=== PATIENT | female | born 1980 | race Caucasian/White ===

== ENCOUNTER 2017-02-01 21:47 | Emergency (ER) | payer OTHER ==
[2017-02-01 21:56] VITALS: PULSE 83; TEMP 97.5; BMI 30.9
--- NOTE | 2017-02-01 22:03 | PDOC ---
Attending Attestation - Resident Resident Name: ThomamanjanyJona - HPI HPI: 02/02/17 05:12 not taking BP meds; now BP elevated; pt doesn't know what meds she was on. - Physicial Exam PE: 02/02/17 05:12 agree with resident exam - Medical Decision Making 02/02/17 05:12 HCTZ will be given follow with PMD; avoid salt.
--- NOTE | 2017-02-01 22:03 | PDOC ---
History of Present Illness - General Chief Complaint: Blood Pressure Problem Stated Complaint: BLOOD PRESSURE Time Seen by Provider: 02/01/17 21:59 - History of Present Illness Initial Comments: 02/01/17 22:02 The patient is a 36 year old female with a significant past medical history of HTN who presents to the emergency department with a bp reading at home of 210/ 100. She reports that she has been feeling weak and dizzy recently and ran out of her BP medication 2 weeks ago. The patient denies chest pain, shortness of breath, and headache. Denies fever, chills, nausea, vomit, diarrhea and constipation. Denies dysuria, frequency, urgency and hematuria. Allergies: Denies Past surgical history: 1 Social history: Denies PMD - Bharti Osorio Past History - Past Medical History Allergies/Adverse Reactions: Allergies Allergy/AdvReac Type Severity Reaction Status Date / Time No Known Allergies Allergy Verified 02/01/17 21:53 Home Medications: Ambulatory Orders Hydrochlorothiazide [Hctz -] 25 mg PO DAILY #30 tablet 02/01/17 HTN: Yes - Immunization History Immunization Up to Date: Yes - Psycho/Social/Smoking Cessation Hx Anxiety: No Suicidal Ideation: No Smoking History: Never smoked Have you smoked in the past 12 months: No Hx Alcohol Use: No Drug/Substance Use Hx: No Substance Use Type: None Review of Systems - Review of Systems Comments:: 02/01/17 22:02 GENERAL/CONSTITUTIONAL: No fever or chills. No weakness. HEAD, EYES, EARS, NOSE AND THROAT: No change in vision. No ear pain or discharge. No sore throat. CARDIOVASCULAR: No chest pain or shortness of breath RESPIRATORY: No cough, wheezing, or hemoptysis. GASTROINTESTINAL: No nausea, vomiting, diarrhea or constipation. GENITOURINARY: No dysuria, frequency, or change in urination. MUSCULOSKELETAL: No joint or muscle swelling or pain. No neck or back pain. SKIN: No rash NEUROLOGIC: No headache, vertigo, loss of consciousness, or change in strength/ sensation. ENDOCRINE: No increased thirst. No abnormal weight change HEMATOLOGIC/LYMPHATIC: No anemia, easy bleeding, or history of blood clots. ALLERGIC/IMMUNOLOGIC: No hives or skin allergy. *Physical Exam - Vital Signs Last Vital Signs Temp Pulse Resp BP Pulse Ox 97.5 F L 83 18 210/100 100 02/01/17 21:54 02/01/17 21:54 02/01/17 21:54 02/01/17 21:54 02/01/17 21:54 - Physical Exam Comments: 02/01/17 22:02 GENERAL: Awake, alert, and fully oriented, in no acute distress HEAD: No signs of trauma, normocephalic, atraumatic EYES: PERRLA, EOMI, sclera anicteric, conjunctiva clear ENT: Auricles normal inspection, hearing grossly normal, nares patent, oropharynx clear without exudates. Moist mucosa NECK: Normal ROM, supple, no lymphadenopathy, JVD, or masses LUNGS: No distress, speaks full sentences, clear to auscultation bilaterally HEART: Regular rate and rhythm, normal S1 and S2, no murmurs, rubs or gallops, peripheral pulses normal and equal bilaterally. ABDOMEN: Soft, nontender, normoactive bowel sounds. No guarding, no rebound. No masses EXTREMITIES: Normal inspection, Normal range of motion, no edema. No clubbing or cyanosis. NEUROLOGICAL: Cranial nerves II through XII grossly intact. Normal speech, normal gait, no focal sensorimotor deficits SKIN: Warm, Dry, normal turgor, no rashes or lesions noted. Medical Decision Making - Medical Decision Making 02/01/17 23:49 Patient BP lowered with 50 of Lasix. D/Cing to home with instructions to f/u with PCP. *DC/Admit/Observation/Transfer Diagnosis at time of Disposition: Hypertension Qualifiers: Hypertension type: unspecified Qualified Code(s): I10 - Essential (primary) hypertension - Discharge Dispostion Disposition: HOME - Prescriptions Prescriptions: Hydrochlorothiazide [Hctz -] 25 mg PO DAILY #30 tablet - Patient Instructions Printed Discharge Instructions: DI for High Blood Pressure
[2017-02-01] MEDS ORDERED: HYDROCHLOROTHIAZIDE 50 MG TABLET PO ONE (22:28)
[2017-02-01] MEDS ORDERED: HYDROCHLOROTHIAZIDE 25 MG TABLET (FP) ONE ×2 (22:35→22:42)
[2017-02-01 23:58] VITALS: BP 158/107
== END 2017-02-01 23:54 | disposition home or self-care (01) ==
LOC: JER 21:47
DX: I10 Essential (primary) hypertension (principal)
CPT/HCPCS: 99282-25

== ENCOUNTER 2020-03-17 19:17 | Emergency (ER) | payer OTHER ==
[2020-03-17 19:27] VITALS: BMI 32.5
--- OUTSIDE RECORDS SUMMARY | 2020-03-17 19:40 | XMS ---
:1980 Author Organization [facility] Support Name Relationship Address Phone UE Unavailable Unavailable Unavailable SASKIA BUNCH [address] [facility] [place] [address] Re-disclosure Warning The records that you are about to access may contain information from federally- assisted alcohol or drug abuse programs. If such information is present, then the following federally mandated warning applies: This information has been disclosed to you from records protected by federal confidentiality rules (42 CFR part 2). The federal rules prohibit you from making any further disclosure of this information unless further disclosure is expressly permitted by the written consent of the person to whom it pertains or as otherwise permitted by 42 CFR part 2. A general authorization for the release of medical or other information is NOT sufficient for this purpose. The Federal rules restrict any use of the information to criminally investigate or prosecute any alcohol or drug abuse patient.The records that you are about to access may contain highly sensitive health information, the redisclosure of which is protected by Article 27-F of the [facility] Public Health law. If you continue you may haveaccess to information: Regarding HIV / AIDS; Provided by facilities licensed or operated by the [facility] Office of Mental Health; or Provided by the [facility] Office for People With Developmental Disabilities. If such information is present, then the following [facility] mandated warning applies: This information has been disclosed to you from confidential records which are protected by state law. State law prohibits you from making any further disclosure of this information without the specific written consent of the person to whom it pertains, or as otherwise permitted by law. Any unauthorized further disclosure in violation of state law may result in a fine or intermediate sentence or both. A general authorization for the release of medical or other information is NOT sufficient authorization for further disclosure. Insurance Providers Payer name Policy type Policy ID Covered Covered alliance party's Policy P abimbola / Coverage alliance party ID relationship to [employer] type [place] [place] [id number] HEALTH NON CAP
[2020-03-17] MEDS ORDERED: LABETALOL HCL 5 MG/1 ML (100MG/20 ML VIAL) IVPUSH ONE (19:56)
--- NOTE | 2020-03-17 20:06 | PDOC ---
History of Present Illness - General Chief Complaint: Chest Pain Stated Complaint: CHEST PAIN, SENT BY [facility] Time Seen by Provider: 03/17/20 19:46 - History of Present Illness Initial Comments: HPI: 03/17/20 19:57 39 yo F PMH HTN, HLD, presenting with chest pain. Citizen Of [place] speaking only, here with her . Reports that over the past 2 weeks, she has been having constant 8/10 L sided chest pain, feels like tightness, with occasional radiation down her left arm, associated with SOB and SANCHEZ. Has only been taking her labetalol 200mg BID once a day or not at all because "it is too much". Denies smoking, drinks 5 beers three times a week, denies other drug use. Mom and dad both have high blood pressure. Denies N/V and diaphoresis. ROS: GENERAL/CONSTITUTIONAL: denies fever, chills, diaphoresis, generalized weakness HEAD, EYES, EARS, NOSE AND THROAT: denies rhinorrhea, nasal congestion NEUROLOGIC: denies headache, dizziness, mental status changes CARDIOVASCULAR: endorses chest pain. Denies syncope, palpitations, irregular heart rate, lightheadedness, peripheral edema RESPIRATORY: endorses shortness of breath and dyspnea with exertion. Denies cough, orthopnea, wheezing GASTROINTESTINAL: denies abdominal pain, abdominal distension, nausea, vomiting, diarrhea, constipation GENITOURINARY: denies dysuria, frequency, urgency MUSCULOSKELETAL: denies myalgia, arthralgia, joint swelling, back pain, neck pain SKIN: denies rash, itching PE: Gen: well-developed, well-nourished, NAD Neuro: AAOX4, CN II-XII intact HEENT: atraumatic, normocephalic, dry mucous membranes Neck: trachea midline, supple CV: regular rate, regular rhythm, no murmurs, rubs, or gallops Pulm: CTA b/l, no wheezing Abd: soft, non-distended, non-tender MSK: full ROM, intact pulses Extr: no edema, no deformities Skin: warm, dry MDM: Concern for ACS vs angina vs PE. Cannot PERC out due to HR occasionally in low 100s. - CBC, CMP - D-dimer - EKG, trop - CXR - labetalol 10mg IV - reassess EKG normal sinus at 97 bpm, GA 154, QRS 86, QTc 441, RSR' in AVF, no ST segment changes or T wave inversions 03/17/20 22:35 Reassessed, pain down to 5/10. Notes that it hurts when she moves her L arm. Will place Lidoderm patch on L chest. 03/17/20 23:30 Reassessed, feeling better. Labs unconcerning. CXR wnl. Trop and D-dimer negative. Will dc for further outpatient management. Past History - Medical History Allergies/Adverse Reactions: Allergies Allergy/AdvReac Type Severity Reaction Status Date / Time No Known Allergies Allergy Verified 02/01/17 21:53 Home Medications: Ambulatory Orders Labetalol HCl [Normodyne -] 200 mg PO BID 03/17/20 Pravastatin Sodium [Pravachol (Nf)] 40 mg PO HS 03/17/20 COPD: No HTN: Yes - Reproductive History Is Patient Now?: No - Immunization History Immunization Up to Date: Yes - Psycho-Social/Smoking History Smoking History: Never smoked Have you smoked in the past 12 months: No - Substance Abuse Hx (Audit-C & DAST Scrn) How often the patient has a drink containing alcohol: Monthly or less Score: In Men: 4 or > Positive; In Women: 3 or > Positive: 1 Screen Result (Pos requires Nsg. Audit-10AR): Negative *Physical Exam - Vital Signs Last Vital Signs Temp Pulse Resp BP Pulse Ox 97.6 F 86 13 167/92 100 03/17/20 22:20 03/17/20 22:20 03/17/20 22:20 03/17/20 22:20 03/17/20 22:20 Heart Score/ECG Review - History History: Moderately suspicious - Electrocardiogram EKG: Non specific repolarization disturbance - Age Age: </= 45 - Risk Factors Risk Factors Heart Score: Yes Hx Hypercholesterolemia, Yes Hx Hypertension Based on the list above the patient has:: 1-2 risk factors - Troponin Troponin: </= normal limit - Score Heart Score - Total: 3 ED Treatment Course - LABORATORY CBC & Chemistry Diagram: 03/17/20 21:10 03/17/20 21:10 - ADDITIONAL ORDERS Additional order review: Laboratory Results 03/17/20 03/17/20 03/17/20 21:10 21:10 21:10 D-Dimer < 215 Sodium 138 Potassium 4.3 Chloride 106 Carbon Dioxide 28 Anion Gap 4 L BUN 18.0 Creatinine 0.6 Est GFR (CKD-EPI)AfAm 134.01 Est GFR (CKD-EPI)NonAf 115.63 Random Glucose 80 Calcium 9.0 Total Bilirubin 0.4 AST 24 ALT 30 Alkaline Phosphatase 78 Creatine Kinase 127 Troponin I 0.03 Total Protein 7.6 Albumin 3.8 Serum , Qual Negative 03/17/20 21:10 RBC 4.51 MCV 83.2 MCHC 33.0 RDW 14.0 MPV 9.5 Neutrophils % 63.5 Lymphocytes % 29.5 Monocytes % 5.5 Eosinophils % 1.3 Basophils % 0.2 - RADIOLOGY Radiology Studies Ordered: Category Date Time Status CHEST PA & LAT [RAD] Stat Radiology 03/17/20 19:57 Taken - Medications Given in the ED: ED Medications Discontinued Medications Generic Name Dose Route Start Last Admin Trade Name Freq PRN Reason Stop Dose Admin Labetalol HCl 10 mg 03/17/20 19:56 03/17/20 21:06 Normodyne Injection - IVPUSH 03/17/20 19:57 10 mg ONCE ONE Administration Lidocaine 1 patch 03/17/20 22:35 03/17/20 22:55 Lidoderm Patch - TP 03/17/20 22:36 1 patch ONCE ONE Administration Discharge - Discharge Information Problems reviewed: Yes Clinical Impression/Diagnosis: Chest pain Qualifiers: Chest pain type: unspecified Qualified Code(s): R07.9 - Chest pain, unspecified Condition: Stable Disposition: HOME - Follow up/Referral Referrals: Bharti Osorio MD [Primary Care Provider] - - Patient Discharge Instructions Patient Printed Discharge Instructions: DI for Atypical Chest Pain Additional Instructions: You were seen with chest pain. Your labs were unconcerning, as were your EKG and CXR. Your pain resolved with pain medication. Please alternate taking ibuprofen and acetaminophen every 6 hours as needed for pain. Follow up with your primary care doctor within one week. Return to the ER if you develop new or worsening symptoms. - Post Discharge Activity
--- NOTE | 2020-03-17 20:20 | PDOC ---
Attending Attestation - Resident Resident Name: MedinaLarisa - ED Attending Attestation I have performed the following: I have examined & evaluated the patient, The case was reviewed & discussed with the resident, I agree w/resident's findings & plan - HPI HPI: 03/17/20 20:18 39 yo F PMH HTN, HLD, presenting with chest pain. American speaking only, here with her . Reports that over the past 2 weeks, she has been having constant 8/10 L sided chest pain, feels like tightness, with occasional radiation down her left arm, associated with SOB and SANCHEZ. Has only been taking her labetalol 200mg BID once a day or not at all because "it is too much". Denies smoking, drinks 5 beers three times a week, denies other drug use. Mom and dad both have high blood pressure. Denies N/V and diaphoresis. - Physicial Exam PE: 03/17/20 20:18 Agree with the resident's HPI and PE as documented in the electronic medical record. NAD, well appearing, EOMI, PERRL, nl conjunctiva, anicteric; neck supple. lungs clear, tachycardic, abdomen soft nontender. no rebound, guarding. Back nontender. MEJIA x4, no focal neuro deficits. speech clear. No peripheral edema. normal color for ethnicity, WWP. 03/17/20 23:49 03/17/20 23:50 - Medical Decision Making 03/17/20 20:19 Vital Signs Temp Pulse Resp BP Pulse Ox 98.2 F 104 H 20 203/112 H 100 03/17/20 19:22 03/17/20 19:22 03/17/20 19:22 03/17/20 19:22 03/17/20 19:22 sent from urgent care for chest pain and high BP has chest pain for 2 weeks chest pain non radiating a bit of difficulty breathing Vital signs reviewed. Hypertensive. Borderline tachycardia 104. Afebrile, no systemic symptoms. Complaining of chest pain or shortness of breath DDx chest pain: ACS, coronary vasospasm, NSTEMI, arrhythmia, unstable angina, PE, dissection, PUD, esophageal spasm, GERD, gastritis, costochondritis, pneumonia, pleurisy, pericarditis/myocarditis. dehydration, electrolyte/metabolic derangements. EKG normal sinus rhythm 97 bpm, no interval abnormalities, narrow QRS, ST and T wave segments and morphology normal. Nonspecific T wave abnormalities, unchanged from prior Chest pain HEART score 3 which denotes Low risk and probability for ACS, less than 1.7% risk for MACE at 4-6 wks will give labetalol 10mg IV, for her HTN, as most likely etiology for her cp/symptoms. labs and lytes WNL dimer, as cannot perc out with tachycardia. D-dimer is negative, so unlikely PE trop is negative, reassuring, unlikely cardiac BP is improving after labetalol, no longer tachy, HTN downtrending. pt feels better after appropriate treatment, lido for msk pain No evidence of ACS, pericarditis, myocarditis, pulmonary embolism, pneumothorax, pneumonia, Zoster, or esophageal perforation. Historically not abrupt in onset, tearing or ripping, pulses symmetric, no evidence of aortic dissection. compliance with labetalol therapy is reviewed, to control her HTN pt verbalized understanding of impression and plan, along with her spouse. DC stable condition, return precautions, primary care followup. 03/17/20 21:01 03/17/20 22:22 03/17/20 23:48 03/17/20 23:50 Discharge - Discharge Information Problems reviewed: Yes Clinical Impression/Diagnosis: Chest pain Qualifiers: Chest pain type: unspecified Qualified Code(s): R07.9 - Chest pain, unspecified Hypertension Qualifiers: Hypertension type: unspecified Qualified Code(s): I10 - Essential (primary) hypertension Condition: Stable Disposition: HOME - Admission No - Follow up/Referral Referrals: Bharti Osorio MD [Primary Care Provider] - - Patient Discharge Instructions Patient Printed Discharge Instructions: DI for High Blood Pressure, DI for Atypical Chest Pain Additional Instructions: You were seen with chest pain. Your labs were unconcerning, as were your EKG and CXR. Your pain resolved with pain medication. Please alternate taking ibuprofen and acetaminophen every 6 hours as needed for pain. Follow up with your primary care doctor within one week. Return to the ER if you develop new or worsening symptoms. Print Language: BURKINAN - Post Discharge Activity
[2020-03-17] MEDS ORDERED: LABETALOL HCL 5 MG/1 ML (200MG/40ML VIAL) IVPB ONE (20:33)
[2020-03-17 21:27] LABS: BASO % 0.2 % (0-2.0); EOS % 1.3 % (0-4.5); HEMATOCRIT 37.5 % (32.4-45.2); HEMOGLOBIN 12.4 GM/dL (10.7-15.3); LYMPH % 29.5 % (8-40); MCH 27.4 pg (25.7-33.7); MEAN CELL VOLUME 83.2 fl (80-96); MEAN PLT VOLUME 9.5 fl (7.5-11.1); MONO % 5.5 % (3.8-10.2); NEUT % 63.5 % (42.8-82.8); PLATELET COUNT 200 K/MM3 (134-434); RBC 4.51 M/mm3 (3.60-5.2); WHITE BLOOD COUNT 7.2 K/mm3 (4.0-10.0)
[2020-03-17 21:57] LABS: POTASSIUM 4.3 mmol/L (3.5-5.1)
[2020-03-17 21:59] LABS: ALBUMIN 3.8 g/dl (3.4-5.0)
[2020-03-17] MEDS ORDERED: LIDOCAINE PATCH REMOVAL MC SCH (22:00)
[2020-03-17 22:02] LABS: CREATININE 0.6 mg/dL (0.55-1.3)
[2020-03-17 22:04] LABS: BILIRUBIN,TOTAL 0.4 mg/dL (0.2-1); TOT PROT 7.6 g/dl (6.4-8.2)
[2020-03-17] MEDS ORDERED: LIDOCAINE 5% TOPICAL PATCH TP ONE (22:35)
[2020-03-17] MEDS ORDERED: LIDOCAINE 5% TOPICAL PATCH ONE (22:50)
[2020-03-18 00:40] VITALS: BP 162/95; PULSE 87; TEMP 99.2
--- NOTE | 2020-03-19 16:10 | EKG ---
Test Reason : Blood Pressure : / mmHG Vent. Rate : 097 BPM Atrial Rate : 097 BPM P-R Int : 154 ms QRS Dur : 086 ms QT Int : 348 ms P-R-T Axes : 065 016 050 degrees QTc Int : 441 ms NORMAL SINUS RHYTHM POSSIBLE LEFT ATRIAL ENLARGEMENT SEPTAL INFARCT , AGE UNDETERMINED ABNORMAL ECG NO PREVIOUS ECGS AVAILABLE Confirmed by MADHURI MILLER MD ([id number]) on 03/19/2020 4:10:23 PM Referred By: Confirmed By:MADHURI MILLER MD
== END 2020-03-18 00:34 | disposition home or self-care (01) ==
LOC: JER 19:17
PROC: 3E033NZ Introduction of Analgesics, Hypnotics, Sedatives into Peripheral Vein, Percutaneous Approach (ICD-10-PCS; principal; 2020-03-17)
DX: R07.9 Chest pain, unspecified (principal)
CPT/HCPCS: 36415; 71046-TC-FY; 80053; 82550; 84484; 84703; 85025; 85379; 93005; 93010; 99285-25

== ENCOUNTER 2021-02-19 11:33 | Emergency (ER) | payer OTHER ==
[2021-02-19 11:49] VITALS: BP 177/94; PULSE 86; TEMP 98.2; BMI 27.3
[2021-02-19] MEDS ORDERED: BACITRACIN 15 GM TUBE TOPICAL OINTMENT TP ONE (12:44)
[2021-02-19] MEDS ORDERED: BACITRACIN 15 GM TUBE TOPICAL OINTMENT ONE (12:46)
== END 2021-02-19 13:26 | disposition home or self-care (01) ==
LOC: JERFT 11:33
DX: N64.9 Disorder of breast, unspecified (principal)
CPT/HCPCS: 99283-25

== ENCOUNTER 2021-03-13 04:20 | Day surgery (SDC) | payer OTHER ==
[2021-03-11 11:47] VITALS: BMI 33.6
[2021-03-13] MEDS ORDERED: LIDOCAINE HCL 1% EPINEPHRINE 1:200,000 30 ML VIAL (PF) ONE (10:39)
[2021-03-13] MEDS ORDERED: PROPOFOL 20 ML ONE ×3 (10:42→11:04)
[2021-03-13] MEDS ORDERED: MIDAZOLAM HCL 2 MG/2 ML SINGLE DOSE VIAL ONE (10:42)
[2021-03-13] MEDS ORDERED: DEXAMETHASONE SOD PHOSPHATE 4 MG/1 ML VIAL ONE (10:58)
[2021-03-13] MEDS ORDERED: LIDO 2%/EPI 1:200000 PRESRVFRE (20 ML SDVIAL) INF ONE (11:06)
[2021-03-13] MEDS ORDERED: BUPIVACAINE HCL/PF 2.5 MG/ML - 30 ML VIAL IJ ONE (11:11)
[2021-03-13 13:32] VITALS: BP 173/90; PULSE 72; TEMP 98.4
== END 2021-03-13 13:29 | disposition home or self-care (01) ==
LOC: JASU-SURG 04:20
PROVIDERS: ATTEND Surgery Surgical Oncology
PROC: 0HBX0ZX Excision of Left Nipple, Open Approach, Diagnostic (ICD-10-PCS; principal; 2021-03-13 10:30)
DX: D24.2 Benign neoplasm of left breast (principal)
CPT/HCPCS: 81025; 88305-TC; 88342-TC

== ENCOUNTER 2021-03-17 15:30 | Emergency (ER) | payer OTHER ==
[2021-03-17 15:40] VITALS: TEMP 97; BMI 33.6
[2021-03-17 18:38] LABS: BASO % 0.5 % (0-2.0); EOS % 1.4 % (0-4.5); HEMATOCRIT 38.4 % (32.4-45.2); HEMOGLOBIN 12.8 GM/dL (10.7-15.3); LYMPH % 26.6 % (8-40); MCH 27.4 pg (25.7-33.7); MCHC 33.3 g/dl (32.0-36.0); MEAN CELL VOLUME 82.4 fl (80-96); MEAN PLT VOLUME 8.7 fl (7.5-11.1); MONO % 6.8 % (3.8-10.2); NEUT % 64.7 % (42.8-82.8); PLATELET COUNT 241 10^3/uL (134-434); RBC 4.66 M/mm3 (3.60-5.2); RDW 14.5 % (11.6-15.6); WHITE BLOOD COUNT 6.5 K/mm3 (4.0-10.0)
[2021-03-17] MEDS ORDERED: KETOROLAC TROMETHAMINE 30 MG/1 ML VIAL IVPUSH ONE (18:50)
[2021-03-17] MEDS ORDERED: METOCLOPRAMIDE HCL INJECTION 10 MG/2 ML VIAL IVPUSH ONE (18:50)
[2021-03-17] MEDS ORDERED: SODIUM CHLORIDE 0.9% 500 ML INFUS.BAG IV ONE (18:50)
[2021-03-17 18:51] LABS: CHLORIDE 101 mmol/L (98-107); SODIUM 136 mmol/L (136-145)
[2021-03-17 18:52] LABS: ALBUMIN 3.9 g/dl (3.4-5.0); ANION GAP 9 MMOL/L (8-16); BLOOD UREA NITROGEN 18.5 mg/dL (7-18); CALCIUM 8.9 mg/dL (8.5-10.1); CO2 26 mmol/L (21-32)
[2021-03-17 18:55] LABS: CREATININE 0.8 mg/dL (0.55-1.3); SGOT/AST 20 U/L (15-37); SGPT/ALT 36 U/L (13-61)
[2021-03-17 18:58] LABS: ALK PHOS 71 U/L (45-117); BILIRUBIN,TOTAL 0.3 mg/dL (0.2-1); TOT PROT 8.2 g/dl (6.4-8.2)
[2021-03-17 19:01] LABS: GLUCOSE,RANDOM 105 mg/dL (74-106)
[2021-03-17] MEDS ORDERED: METOCLOPRAMIDE HCL INJECTION 10 MG/2 ML VIAL ONE (19:01)
[2021-03-17] MEDS ORDERED: KETOROLAC TROMETHAMINE 30 MG/1 ML VIAL ONE (19:01)
[2021-03-17 19:11] LABS: URINE APPEARANCE CLEAR; URINE BILIRUBIN NEGATIVE (NEGATIVE); URINE COLOR YELLOW; URINE GLUCOSE (UA) NEGATIVE (NEGATIVE); URINE KETONE NEGATIVE (NEGATIVE); URINE PROTEIN NEGATIVE (NEGATIVE); URINE UROBILINOGEN 0.2 mg/dL (0.2-1.0)
[2021-03-17 19:12] LABS: URINE LEUK ESTERASE NEGATIVE (NEGATIVE); URINE NITRITE NEGATIVE (NEGATIVE)
[2021-03-17 19:24] LABS: EPI CELLS 11.5 /uL (0-25.1); HYALINE CASTS 0 /uL (0-3.1); URINE RBC 0.8 /uL (0-23.9); URINE WBC 2.4 /uL (0-25.8)
[2021-03-17 19:25] LABS: URINE BACTERIA NEGATIVE /hpf (NEGATIVE)
[2021-03-17 20:58] VITALS: BP 169/109; PULSE 79
== END 2021-03-17 20:59 ==
LOC: JER 15:30
PROC: 3E0333Z Introduction of Anti-inflammatory into Peripheral Vein, Percutaneous Approach (ICD-10-PCS; principal; 2021-03-17)
DX: R07.9 Chest pain, unspecified (principal); I10 Essential (primary) hypertension; R51.9 Headache, unspecified
CPT/HCPCS: 36415; 71046-TC-FY; 80053; 81003; 82550; 84484; 85025; 93005; 93010; 99284-25

== ENCOUNTER 2024-03-17 21:00 | Emergency (ER) | payer OTHER ==
[2024-03-17 21:12] VITALS: RESP 18; TEMP 98.1; BMI 35.4
[2024-03-17] MEDS ORDERED: LABETALOL HCL 100 MG TABLET (FP) ONE (22:30)
[2024-03-17] MEDS ORDERED: ASPIRIN 81 MG CHEWABLE TABLETS ONE (22:30)
[2024-03-17] MEDS: ASPIRIN 81 MG CHEWABLE TABLETS PO ONE (22:47)
[2024-03-17] MEDS: LABETALOL HCL 100 MG TABLET (FP) PO ONE (22:47)
[2024-03-17 23:06] LABS: BASO % 0.5 % (0-2.0); EOS % 1.9 % (0-4.5); HEMATOCRIT 38.8 % (32.4-45.2); HEMOGLOBIN 12.7 GM/dL (10.7-15.3); LYMPH % 36.9 % (8-40); MCH 26.2 pg (25.7-33.7); MCHC 32.8 g/dl (32.0-36.0); MEAN CELL VOLUME 80.1 fl (80-96); MEAN PLT VOLUME 8.5 fl (7.5-11.1); MONO % 5.9 % (3.8-10.2); NEUT % 54.8 % (42.8-82.8); PLATELET COUNT 234 10^3/uL (134-434); RBC 4.85 M/mm3 (3.60-5.2); RDW 14.8 % (11.6-15.6); WHITE BLOOD COUNT 5.8 K/mm3 (4.0-10.0)
[2024-03-17 23:12] LABS: INR 0.92 (0.83-1.09); PROTHROMBIN TIME (PATIENT) 10.6 SEC (9.7-13.0)
[2024-03-17 23:14] LABS: ACTIVATED PTT 36.1 SECONDS (25.2-36.5)
[2024-03-17 23:24] LABS: ALBUMIN 4.1 g/dl (3.4-5.0); CALCIUM 9.4 mg/dL (8.5-10.1)
[2024-03-17 23:25] LABS: BLOOD UREA NITROGEN 12.2 mg/dL (7-18)
[2024-03-17 23:28] LABS: CREATININE 0.7 mg/dL (0.55-1.3)
[2024-03-17 23:29] LABS: BILIRUBIN,TOTAL 0.4 mg/dL (0.2-1); TOT PROT 7.9 g/dl (6.4-8.2)
[2024-03-17 23:52] VITALS: BP 128/69; PULSE 82
== END 2024-03-18 00:10 | disposition home or self-care (01) ==
LOC: JER 21:00
DX: I10 Essential (primary) hypertension (principal); R07.89 Other chest pain
CPT/HCPCS: 36415; 71046-TC-FY; 80053; 84484; 84703; 85025; 85610; 85730; 93005; 93010; 99285-25